=== PATIENT | male | born 1985 | race Caucasian/White ===

== ENCOUNTER 2019-12-07 10:35 | Outpatient (CLI) | payer MEDICARE, MEDICAID ==
--- NOTE | 2020-02-15 14:49 | ULT ---
US Gallbladder RUQ History: Abdominal pain Comparison: None. Findings: Real-time grayscale and color evaluation right upper quadrant of the abdomen was performed. Visualized portion of the aorta, IVC and pancreas are unremarkable. Liver measures 13.4 cm in length. No hepatic mass. Gallbladder wall thickness is normal. Portal vein is patent with antegrade flow. No gallbladder wall thickening. No pericholecystic fluid. Right kidney measures 8.7 x 4.9 x 4.7 cm without mass, hydronephrosis or abnormal calcifications. No dilatation of the common bile duct. Impression: Normal right upper quadrant ultrasound.
== END 2019-12-07 10:36 | disposition home or self-care (01) ==
LOC: SCSULT 10:35
PROVIDERS: ATTEND Family Medicine
DX: R10.9 Unspecified abdominal pain (principal)
CPT/HCPCS: 76705

== ENCOUNTER 2020-02-14 10:26 | Outpatient (CLI) | payer MEDICARE, OTHER ==
--- NOTE | 2020-02-14 11:10 | RAD ---
XR Knee Rt 3 View History: Pain Comparison: None Findings: No acute fracture or malalignment. No joint effusion. No significant joint space narrowing. Impression: Normal right knee exam.
--- NOTE | 2020-02-14 11:11 | RAD ---
EXAM: 3 views of the left knee HISTORY: Knee pain COMPARISON: None FINDINGS: No knee effusion is seen. There is no evidence of acute fracture or dislocation. No signifi cant degenerative changes are seen. No soft tissue swelling is present. IMPRESSION: No evidence of acute osseous abnormality.
== END 2020-02-14 10:27 | disposition home or self-care (01) ==
LOC: SCSRAD 10:26
PROVIDERS: ATTEND Family Medicine
DX: M25.561 Pain in right knee (principal); M25.562 Pain in left knee